=== PATIENT | male | born 1995 | race Caucasian/White ===

== ENCOUNTER 2016-08-08 11:02 | Emergency (ER) | payer OTHER ==
[2016-08-08] MEDS ORDERED: Orphenadrine Citrate IV* 30 MG/ML 2 ML VIAL IV ONE (11:20)
[2016-08-08] MEDS ORDERED: Ondansetron INJ* 2 MG/ML VIAL IV ONE (11:20)
[2016-08-08] MEDS ORDERED: Morphine INJ* 4 MG/ML 1 ML CARPUJECT IV ONE (11:20)
[2016-08-08] MEDS ORDERED: Ketorolac INJ* 30 MG/ML 1 ML VIAL IV PUSH ONE (11:20)
[2016-08-08] MEDS ORDERED: Dexamethasone IV* 4 MG/ML 1 ML (4 MG) IV SLOW PU ONE (11:20)
--- NOTE | 2016-08-08 12:32 | RAD ---
HISTORY: Back pain, history of L4-L5 discectomy COMPARISONS: MRI dated April 13, 2016 TECHNIQUE: Multiple contiguous axial CT scans were obtained of the lumbar spine without intravenous contrast, with coronal and sagittal multiplanar reformations. FINDINGS: SPINAL CANAL: Evaluation of the central canal is limited on CT technique; however, there is no obvious canalicular mass or epidural hemorrhage. ALIGNMENT: There is straightening of the lumbar lordosis VERTEBRAL BODIES: There is a laminectomy defect at L4-L5 JOINTS: No subluxation or dislocation MUSCULATURE: Unremarkable INTERVERTEBRAL DISCS: There is mild diffuse loss of intervertebral disc height throughout the spine. AXIAL IMAGES: T11-T12: There is no osseous neural foraminal area or central canal stenosis. T12-L1: There is no osseous neural foraminal narrowing or central canal stenosis. L1-L2: There is no osseous neural foraminal narrowing or central canal stenosis. L2-L3: There is no osseous neural foraminal narrowing or central canal stenosis. L3-L4: There is no osseous neural foraminal narrowing or central canal stenosis. L4-L5: There is a broad-based disc bulge. There is marginal osteophyte formation at the neural foramina bilaterally. There is moderate bilateral neural foraminal narrowing. A laminectomy defect is noted. L5-S1: There is mild disc bulge with marginal osteophyte formation at the neural foramina bilaterally. There is moderate bilateral neural foraminal narrowing. There is no osseous central canal stenosis. SOFT TISSUES: The visualized soft tissues of the abdomen are unremarkable. OTHER: None IMPRESSION: 1. POSTSURGICAL CHANGE. 2. DEGENERATIVE DISC DISEASE MOST PRONOUNCED AT L4-L5 AND L5-S1 WITH NEURAL FORAMINAL NARROWING DESCRIBED ABOVE.
--- NOTE | 2016-08-08 13:54 | ED ---
rojas Strong Timothy, scribed for Lev Layton MD on 08/08/16 at 1120 . Back Pain - HPI Summary HPI Summary: Jaquan Paris is a 20 yo male presenting to [facility] with 9/10 back pain since 1030 this am. He states he twisted his back to turn to sneeze at work and felt a sharp pain to his lower back. He states the pain is gradually spreading through his lower body and extremities.He immediately fell to the ground in pain , and was slowly able to work himself back up to a standing position. He states movement increases his pain to a 10/10. He denies any other Sx. His MHx includes spinal cord deformity, L4-L5 disectomy 04/2016, L4-L5 herniated disk, bursitis, and tobacco use. - History of Current Complaint Stated Complaint: BACK PAIN Time Seen by Provider: 08/08/16 11:14 Hx Obtained From: Patient Onset/Duration: Sudden Onset, Lasting Minutes, Still Present Onset/Duration: Started Minutes Ago, Still Present Timing: Constant Back Pain Location: Is Discrete @ - lower back, Radiates To - lower torso and lower extremeties Severity Initially: Moderate Severity Currently: Moderate Pain Intensity: 9 Pain Scale Used: 0-10 Numeric Character: Sharp Aggravating Symptom(s): Movement Alleviating Symptom(s): Rest Associated Signs And Symptoms: Positive: Negative - Allergies/Home Medications Allergies/Adverse Reactions: Allergies Allergy/AdvReac Type Severity Reaction Status Date / Time Bee Pollen Allergy Edema Verified 04/21/16 20:02 PMH/Surg Hx/FS Hx/Imm Hx Endocrine/Hematology History: Denies: Hx Anticoagulant Therapy, Hx Diabetes, Hx Thyroid Disease Cardiovascular History: Denies: Hx Hypertension, Hx Pacemaker/ICD, Other Cardiovascular Problems/ Disorders Respiratory History: Denies: Hx Asthma, Hx Chronic Obstructive Pulmonary Disease (COPD) GI History: Denies: Hx Ulcer, Other GI Disorders History: Denies: Hx Renal Disease Musculoskeletal History: Reports: Hx Bursitis Denies: Other Musculoskeletal History Sensory History: Denies: Hx Contacts or Glasses, Hx Hearing Aid Opthamlomology History: Denies: Hx Contacts or Glasses Neurological History: Denies: Hx Dementia, Hx Seizures Psychiatric History: Denies: Hx Panic Disorder, Hx Substance Abuse - Surgical History Surgery Procedure, Year, and Place: TONSILECTOMY & ADENOIDS REMOVED, MOLE REMOVED FROM BACK, DISCECTOMY (2016) Hx Anesthesia Reactions: No Infectious Disease History: No Infectious Disease History: Denies: Hx Hepatitis, Hx Human Immunodeficiency Virus (HIV), History Other Infectious Disease, Traveled Outside the [place] in Last 30 Days - Family History Known Family History: Positive: Cardiac Disease, Other - CA - mother, neuroblastoma, lung CA, colon CA - Social History Alcohol Use: Occasionally Alcohol Amount: 2-4 BEERS 1-2 TIMES PER WEEK Substance Use Type: Reports: None Smoking Status (MU): Current Some Day Smoker Have You Smoked in the Last Year: No Review of Systems Constitutional: Negative Eyes: Negative ENT: Negative Cardiovascular: Negative Respiratory: Negative Gastrointestinal: Negative Genitourinary: Negative Musculoskeletal: Other - lower back pain radiating through his lower extremities Skin: Negative Neurological: Negative Psychological: Normal All Other Systems Reviewed And Are Negative: Yes Physical Exam - Summary Physical Exam Summary: VITAL SIGNS: Reviewed. GENERAL: Patient is a well developed and nourished male who is lying comfortable in the stretcher. Patient is not in any acute respiratory distress. HEAD AND FACE: No signs of trauma. EYES: PERRLA, EOMI x 2. EARS: Hearing grossly intact. Ear canals and tympanic membranes are WNL MOUTH: Oropharynx within normal limits. NECK: Supple, trachea is midline, no adenopathy, no JVD. CHEST: Symmetric, no tenderness at palpation LUNGS: Clear to auscultation bilaterally. No wheezing or crackles. CVS: RRR, S1 and S2 present, no murmurs or gallops appreciated. ABDOMEN: Soft, NT. No signs of distention. Positive BS. No rebound no guarding, and no masses palpated. EXTREMITIES: FROM in all major joints, no edema, no cyanosis or clubbing. NEURO: Alert and oriented x 3. No acute neurological deficits. Speech is normal and follows commands. SKIN: Dry and warm Back: There is no ecchymosis, no deformity, positive paraspinal muscle tenderness in the lumbar spine. No vertebral tenderness. No saddle anesthesia. Refuses rectal exam. Straight test is negative. Triage Information Reviewed: Yes Vital Signs On Initial Exam: Initial Vitals Temp Pulse Resp BP Pulse Ox 98.4 F 64 18 149/86 98 08/08/16 11:07 08/08/16 11:07 08/08/16 11:07 08/08/16 11:07 08/08/16 11:07 Vital Signs Reviewed: Yes Diagnostics - Vital Signs Vital Signs Temp Pulse Resp BP Pulse Ox 08/08/16 11:07 98.4 F 64 18 149/86 98 - Laboratory Lab Statement: Any lab studies that have been ordered have been reviewed, and results considered in the medical decision making process. - CT L-Spine CT Interpretation: No Acute Changes - IMPRESSION: 1. POSTSURGICAL CHANGE. 2. DEGENERATIVE DISC DISEASE MOST PRONOUNCED AT L4-L5 AND L5-S1 WITH NEURAL FORAMINAL NARROWING DESCRIBED ABOVE., Positive (See Comments) - IMPRESSION: 1. POSTSURGICAL CHANGE. 2. DEGENERATIVE DISC DISEASE MOST PRONOUNCED AT L4-L5 AND L5-S1 WITH NEURAL FORAMINAL NARROWING DESCRIBED ABOVE. CT Interpretation Completed By: Radiologist Re-Evaluation - Re-Evaluation First Eval Re-Evaluation Time: 13:05 Change: Unchanged Comment: Pt was informed of imaging study results, and current course of Tx. Back Pain Course/Dx - Course Assessment/Plan: Jaquan Paris is a 20 yo male presenting to [facility] with 9/10 back pain since 1030 this am. He states he twisted his back to turn to sneeze at work and felt a sharp pain to his lower back. He states the pain is gradually spreading through his lower body and extremities.He immediately fell to the ground in pain, and was slowly able to work himself back up to a standing position. He states movement increases his pain to a 10/10. He denies any other Sx. His MHx includes spinal cord deformity, L4-L5 discectomy 04/2016, L4-L5 herniated disk, bursitis, and tobacco use. P/E: reveal paraspinal muscle tenderness, no vertebral tenderness. He declined rectal exam. He reports no urinary or bowel dysfunction. He denies any saddle anesthesia. Initially he was given Toradol, Morphine, Zofran, Decadron and Norflex for the pain. Lumbar CT impression: 1. POSTSURGICAL CHANGE. 2. DEGENERATIVE DISC DISEASE MOST PRONOUNCED AT L4-L5 AND L5-S1 WITH NEURAL FORAMINAL NARROWING DESCRIBED ABOVE. After initial medications his symptoms have significantly improved. He is able to ambulate and pain in minimal. I discussed the case with Dr. Díaz and he agrees to discharge patient and will f/u with him. I discussed all the findings and test results with the patient. Patient was instructed to return to the emergency room immediately if any of the symptoms return or worsens. Plan of care was discussed with the patient and understands and agrees. All questions were answered at patient satisfaction. There were no further complaints or concerns. Lung exam before discharge: CTA B/L. Good air exchange. No wheezing or crackles heard. CVS: S1 and S2 present. No murmurs appreciated. Patient is alert and oriented x 3. Patient is hemodynamically stable. Patient will be discharged home with follow up family centered specialist in the next 2-3 days - Diagnoses Differential Diagnosis/HQI/PQRI: Positive: Herniated Disc, Strain, Sprain Provider Diagnoses: Back pain, Lumbar sprain - Provider Notifications Discussed Care of Patient With: 1315 - Dr. Díaz (neurosurgery) - discussed Pt condition, agrees with current course of Tx, Pt will be discharged. Discharge - Discharge Plan Condition: Stable Disposition: HOME Prescriptions: Cyclobenzaprine TAB* [Flexeril TAB*] 10 mg PO TID PRN #12 tab PRN Reason: Pain HYDROcodone/ACETAMIN 5-325 MG* [Statham 5-325 TAB*] 1 tab PO Q8H PRN #10 tab MDD max 3 tabs /day PRN Reason: Pain Ibuprofen TAB* [Motrin TAB* 600 MG] 600 mg PO Q8H PRN #20 tab PRN Reason: Pain Patient Education Materials: Back Pain (ED), Lower Back Exercises (ED) Referrals: No Primary Care Phys,NOPCP [Primary Care Provider] - [facility] [place] [facility]IAN REFERRAL [Outside] - 2 Days Additional Instructions: Please follow up with the primary care physician provided regarding your visit to the emergency department today. Return to the emergency department with any new or recurring symptoms. The documentation as recorded by the rojas lora Timothy accurately reflects the service I personally performed and the decisions made by me, Lev Layton MD.
[2016-08-08 14:08] VITALS: BP 127/66
== END 2016-08-08 14:08 | disposition home or self-care (01) ==
LOC: ED 11:02
DX: S33.5XXA Sprain of ligaments of lumbar spine, initial encounter (principal); M54.5 Low back pain; W19.XXXA Unspecified fall, initial encounter; Y93.9 Activity, unspecified; Y92.9 Unspecified place or not applicable
CPT/HCPCS: 72131; 96374; 96375; 99283; J1100; J1885; J2270; J2360; J2405

== ENCOUNTER → 2017-01-15 10:52 | Emergency (ER) | payer OTHER ==
[~2017-01-15 10:52] MED LIST: Ketorolac INJ* 60 MG/2 ML VIAL IM ONE
[2017-01-15 10:57] VITALS: BP 138/93
--- NOTE | 2017-01-15 11:58 | ED ---
Holly Strong Edward, scribed for Stephen Delgado MD on 01/15/17 at 1105 . Back Pain - HPI Summary HPI Summary: 21 y/o male presents to ED c/o gradual onset back soreness starting 2 weeks ago. The pain has been getting progressively worse since it started, rated at 10 /10 at triage. It is spasmodic with movement. The pain is the in lower back and radiates to bilateral legs down to the upper thigh. The pain is aggravated with walking, sitting and standing. Denies urinary symptoms. PMHx back spasms. SHx - History of Current Complaint Chief Complaint: EDBackInjuryPain Stated Complaint: LOWER BACK AND LEG PAIN Time Seen by Provider: 01/15/17 10:59 Hx Obtained From: Patient Onset/Duration: Gradual Onset, Lasting Weeks - 2, Still Present Severity Currently: Severe Pain Intensity: 10 Pain Scale Used: 0-10 Numeric Character: Spasmodic Associated Signs And Symptoms: Positive: Pain with Weight Bearing. Negative: Bladder Incontinence - Allergies/Home Medications Allergies/Adverse Reactions: Allergies Allergy/AdvReac Type Severity Reaction Status Date / Time Bee Pollen Allergy Edema Verified 01/15/17 10:56 PMH/Surg Hx/FS Hx/Imm Hx Previously Healthy: No Endocrine/Hematology History: Denies: Hx Anticoagulant Therapy, Hx Diabetes, Hx Thyroid Disease Cardiovascular History: Denies: Hx Hypertension, Hx Pacemaker/ICD, Other Cardiovascular Problems/ Disorders Respiratory History: Denies: Hx Asthma, Hx Chronic Obstructive Pulmonary Disease (COPD) GI History: Denies: Hx Ulcer, Other GI Disorders History: Denies: Hx Renal Disease Musculoskeletal History: Reports: Hx Bursitis Denies: Other Musculoskeletal History Sensory History: Denies: Hx Contacts or Glasses, Hx Hearing Aid Opthamlomology History: Denies: Hx Contacts or Glasses Neurological History: Denies: Hx Dementia, Hx Seizures Psychiatric History: Denies: Hx Panic Disorder, Hx Substance Abuse - Surgical History Surgery Procedure, Year, and Place: TONSILECTOMY & ADENOIDS REMOVED, MOLE REMOVED FROM BACK, DISCECTOMY (2016) Hx Anesthesia Reactions: No Infectious Disease History: Denies: Hx Hepatitis, Hx Human Immunodeficiency Virus (HIV), History Other Infectious Disease, Traveled Outside the [place] in Last 30 Days - Family History Known Family History: Positive: Cardiac Disease, Other - CA - mother, neuroblastoma, lung CA, colon CA - Social History Occupation: Employed Full-time Lives: With Family Alcohol Use: Occasionally Alcohol Amount: 2-4 BEERS 1-2 TIMES PER WEEK Hx Substance Use: No Substance Use Type: Reports: None Hx Tobacco Use: Yes Smoking Status (MU): Current Some Day Smoker Have You Smoked in the Last Year: No Review of Systems Constitutional: Negative Eyes: Negative ENT: Negative Cardiovascular: Negative Respiratory: Negative Gastrointestinal: Negative Genitourinary: Negative - Denies urinary symptoms Positive: Myalgia - Lower back pain Skin: Negative Neurological: Negative Psychological: Normal All Other Systems Reviewed And Are Negative: Yes Physical Exam Triage Information Reviewed: Yes Vital Signs On Initial Exam: Initial Vitals Temp Pulse Resp BP Pulse Ox 97.4 F 68 16 138/93 99 01/15/17 10:56 01/15/17 10:56 01/15/17 10:56 01/15/17 10:56 01/15/17 10:56 Vital Signs Reviewed: Yes Appearance: Positive: Well-Appearing, No Pain Distress Skin: Positive: Warm, Skin Color Reflects Adequate Perfusion, Dry Head/Face: Positive: Normal Head/Face Inspection Eyes: Positive: Normal ENT: Positive: Normal ENT inspection Neck: Positive: Supple, Nontender Respiratory/Lung Sounds: Positive: Clear to Auscultation, Breath Sounds Present Cardiovascular: Positive: RRR Abdomen Description: Positive: Nontender, Soft Bowel Sounds: Positive: Present Musculoskeletal: Positive: Other - STRAIGHT R LEG RAISE @ 30 DEGREES Neurological: Positive: Normal Psychiatric: Positive: Normal, Affect/Mood Appropriate Diagnostics - Vital Signs Vital Signs Temp Pulse Resp BP Pulse Ox 01/15/17 10:56 97.4 F 68 16 138/93 99 - Laboratory Lab Statement: Any lab studies that have been ordered have been reviewed, and results considered in the medical decision making process. Back Pain Course/Dx - Course Course Of Treatment: Mr. Paris started with low back pain about a week ago which has steadily gotten worse. Now it hurts to move at all and he has spasms. He has previously had surgery and has only had a problem one other time since the surgery. N/V/M are completely intact. I will treat him conservatively at this time with a medrol dose pack which he states worked well for him last time. - Diagnoses Provider Diagnoses: Low back strain Discharge - Discharge Plan Condition: Stable Disposition: HOME Prescriptions: Methylprednisolone [Medrol Dosepak 4 MG*] 4 mg PO .SEE ERIKA INSTRUCTION #1 tab Patient Education Materials: Low Back Strain (ED) Referrals: [facility] [place] - 3 Days (Please f/u in 2-3 days) The documentation as recorded by the Holly lora Edward accurately reflects the service I personally performed and the decisions made by me, Stephen Delgado MD.
== END | disposition home or self-care (01) ==
LOC: ED 10:52
DX: S39.012A Strain of muscle, fascia and tendon of lower back, initial encounter (principal); M62.830 Muscle spasm of back; X58.XXXA Exposure to other specified factors, initial encounter; Y93.9 Activity, unspecified; Y92.9 Unspecified place or not applicable; Z72.0 Tobacco use
CPT/HCPCS: 96372; 99282; J1885

== ENCOUNTER 2017-08-30 10:47 | Emergency (ER) | payer OTHER ==
[2017-08-30 12:20] VITALS: BP 137/85
--- NOTE | 2017-08-30 15:47 | ED ---
Back Pain - HPI Summary HPI Summary: Patient is an otherwise healthy 21-year-old male presenting to the ED with a chief complaint of low back pain, stiffness and back spasms. He sustained an injury 3 years ago and states he has crushed 3 of his discs. Surgery through Dr. Díaz in neurosurgery 2 years ago with 2 discectomies. He states he will have flareups approximately every 6 months where he endorses pain to the lower back with radiating pain to the bilateral posterior extremities. N eyes any bladder or bowel dysfunction. Endorses numbness and tingling to the bilateral posterior legs, with intermittent numbness and tingling into the right dorsal side of the foot. Pain is currently rated a 7 out of 10, worse with lying flat , better with sitting. He has tried ibuprofen 600mg at home without relief. He has tried moist heat without relief. He states his steroid, Medrol Dosepak and Flexeril helps in the past. He does not appear to be opioid seeking. He does not currently have a follow-up with Dr. Díaz and does not currently have a PCP. - History of Current Complaint Chief Complaint: EDBackInjuryPain Stated Complaint: LOWER BACK PAIN/NUMBNESS Time Seen by Provider: 08/30/17 10:53 Hx Obtained From: Patient Onset/Duration: Sudden Onset Onset/Duration: Started Hours Ago Timing: Constant Back Pain Location: Is Discrete @ - low back Severity Initially: Mild Severity Currently: Mild Pain Intensity: 6 Pain Scale Used: 0-10 Numeric Character: Aching Aggravating Symptom(s): Movement, Walking Alleviating Symptom(s): Rest Associated Signs And Symptoms: Positive: Numbness. Negative: Bruising, Weakness , Tingling, Abdominal Pain, Bladder Incontinence, Bowel Incontinence, Weight Loss, Pain with Weight Bearing - Risk Factors AAA Risk Factors: Negative TAD Risk Factors: Negative Cauda Equina Risk Factors: Negative Epidural Abscess Risk Factors: Negative - Allergies/Home Medications Allergies/Adverse Reactions: Allergies Allergy/AdvReac Type Severity Reaction Status Date / Time MS Bee Pollen [Bee Pollen] Allergy Edema Verified 01/15/17 10:56 PMH/Surg Hx/FS Hx/Imm Hx Previously Healthy: Yes Endocrine/Hematology History: Denies: Hx Anticoagulant Therapy, Hx Diabetes, Hx Thyroid Disease Cardiovascular History: Denies: Hx Hypertension, Hx Pacemaker/ICD, Other Cardiovascular Problems/ Disorders Respiratory History: Denies: Hx Asthma, Hx Chronic Obstructive Pulmonary Disease (COPD) GI History: Denies: Hx Ulcer, Other GI Disorders History: Denies: Hx Renal Disease Musculoskeletal History: Reports: Hx Bursitis Denies: Other Musculoskeletal History Sensory History: Denies: Hx Contacts or Glasses, Hx Hearing Aid Opthamlomology History: Denies: Hx Contacts or Glasses Neurological History: Denies: Hx Dementia, Hx Seizures Psychiatric History: Denies: Hx Panic Disorder, Hx Substance Abuse - Surgical History Surgery Procedure, Year, and Place: TONSILECTOMY & ADENOIDS REMOVED, MOLE REMOVED FROM BACK, DISCECTOMY (2016) Hx Anesthesia Reactions: No - Immunization History Hx Pertussis Vaccination: No Immunizations Up to Date: Unable to Obtain/Confirm Infectious Disease History: No Infectious Disease History: Denies: Hx Hepatitis, Hx Human Immunodeficiency Virus (HIV), History Other Infectious Disease, Traveled Outside the [place] in Last 30 Days - Family History Known Family History: Positive: None, Cardiac Disease, Other - CA - mother, neuroblastoma, lung CA, colon CA - Social History Occupation: Employed Full-time Lives: With Family Alcohol Use: Occasionally Alcohol Amount: 2-4 BEERS 1-2 TIMES PER WEEK Hx Substance Use: No Substance Use Type: Reports: None Hx Tobacco Use: Yes Smoking Status (MU): Current Some Day Smoker Have You Smoked in the Last Year: No Review of Systems Constitutional: Negative Negative: Fever, Chills, Fatigue, Skin Diaphoresis Eyes: Negative Cardiovascular: Negative Respiratory: Negative Genitourinary: Negative Positive: no symptoms reported, see HPI Positive: Arthralgia, Myalgia Skin: Negative Positive: Paresthesia, Numbness Psychological: Normal All Other Systems Reviewed And Are Negative: Yes Physical Exam - Summary Physical Exam Summary: Thorough physical exam was performed, focusing on thoracic and lumbar special tests and ROM. Due to patient pain around injury, physical exam was limited. Limited ROM. Flip Test negative. Straight leg raise positive. Kernig test positive. Negative Babinksi. Hip flexion and extension, knee extension, dorsiflexion, great toe extension and plantar flexion intact. Rotating at hips limited d/t pain. Nerve roots L4-S2 reflexes intact. L1-S2 nerve root sensory intact. No saddle anesthesia. Gait normal. Triage Information Reviewed: Yes Vital Signs On Initial Exam: Initial Vitals Temp Pulse Resp BP Pulse Ox 98.2 F 62 18 143/74 100 08/30/17 10:49 08/30/17 10:49 08/30/17 10:49 08/30/17 10:49 08/30/17 10:49 Vital Signs Reviewed: Yes Appearance: Positive: Well-Appearing, Well-Nourished Skin: Positive: Warm, Skin Color Reflects Adequate Perfusion Head/Face: Positive: Normal Head/Face Inspection Eyes: Positive: EOMI, JAVIER Neck: Positive: Supple, No Lymphadenopathy Respiratory/Lung Sounds: Positive: Clear to Auscultation, Breath Sounds Present Cardiovascular: Positive: RRR, Pulses are Symmetrical in both Upper and Lower Extremities Musculoskeletal: Positive: Pain @ - low back on palpation and with rotation of the hips bilaterally - pain referred to the bilateral lower extremities Neurological: Positive: Sensory/Motor Intact, Alert, Oriented to Person Place, Time, Speech Normal Psychiatric: Positive: Affect/Mood Appropriate Diagnostics - Vital Signs Vital Signs Temp Pulse Resp BP Pulse Ox 08/30/17 12:19 98 F 89 16 137/85 100 08/30/17 10:49 98.2 F 62 18 143/74 100 - Laboratory Lab Statement: Any lab studies that have been ordered have been reviewed, and results considered in the medical decision making process. Back Pain Course/Dx - Course Course Of Treatment: During the course of treatment, I have advised the patient this is likely a strain due to chronic low back pain. Acute on chronic pain is normal for him. I discussed giving him a Medrol Dosepak as well as Flexeril. I have given him low back exercises and he will use moist heat for relief. He is okay with this plan and discharge and will follow-up with Dr. Díaz soon. I have also given him a referral to [place] [facility] [place] to reach out to obtain a PCP as soon as possible. Denies any bladder or bowel dysfunction. Vital signs are stable. - Diagnoses Provider Diagnoses: Acute exacerbation of chronic low back pain Discharge - Sign-Out/Discharge Documenting (check all that apply): Discharge - Discharge Plan Condition: Stable Disposition: HOME Prescriptions: Cyclobenzaprine TAB* [Flexeril TAB*] 10 mg PO BID PRN #15 tab MDD 3 PRN Reason: Spasms Ibuprofen 600 mg PO TID PRN #30 tablet MDD 3 PRN Reason: Pain methylPREDNISolone [Medrol Dosepak 4 MG*] 4 mg PO .SEE ERIKA INSTRUCTION #1 packet Patient Education Materials: Lower Back Exercises (ED) Referrals: No Primary Care Phys,NOPCP [Primary Care Provider] - Additional Instructions: Please follow up with Dr. Díaz Call Brynn Byrd to obtain a PCP moist heat to the area several times per day low back exercises ( i have given you information) - Billing Disposition and Condition Condition: STABLE Disposition: HOME
== END 2017-08-30 12:20 | disposition home or self-care (01) ==
LOC: ED 10:47
DX: M54.5 Low back pain (principal); G89.29 Other chronic pain; Z72.0 Tobacco use
CPT/HCPCS: 99282

== ENCOUNTER 2017-11-26 09:49 | Emergency (ER) | payer OTHER ==
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
--- NOTE | 2017-11-26 10:59 | RAD ---
Indication: Chronic back pain, right sciatica pain. CT of the lumbar spine was obtained in the axial plane. Sagittal and coronal reconstructed images were obtained. The vertebral bodies appear normal in height and alignment. Normal bone marrow signal is noted. At L5-S1 broad-based protrusion flattens the thecal sac. There is suggestion of a large right paracentral disc protrusion which indents the thecal sac and likely impinges upon the right descending nerve root. At L4-L5 broad-based protrusion flattens the thecal sac. Post laminectomy at this level. No foraminal stenosis is noted. At L3-L4, L2-L3 and L1-L2 the disc space appears normal. IMPRESSION: At L5-S1 there appears to be large central to right paracentral disc protrusion indenting the thecal sac and may impinge upon the right descending nerve root. Postoperative changes at L4-L5 is noted.
[2017-11-26 11:15] VITALS: BP 149/90
== END 2017-11-26 11:14 | disposition home or self-care (01) ==
LOC: ED 09:49
DX: M51.26 Other intervertebral disc displacement, lumbar region (principal); Z91.030 Bee allergy status; Z82.49 Family history of ischemic heart disease and other diseases of the circulatory system; Z80.0 Family history of malignant neoplasm of digestive organs; Z80.1 Family history of malignant neoplasm of trachea, bronchus and lung; Z72.0 Tobacco use
CPT/HCPCS: 72131; 99282

== ENCOUNTER 2018-02-05 07:43 | Observation (INO) | payer OTHER ==
[~2018-02-05 07:43] MED LIST changes: +Buffered Lidocaine 0.9% SYRIN* 5 ML/SYR SYRINGE INTRADERM ONE; +Famotidine IV* 10 MG/ML 2 ML (20 mg) IV ONE; -Ketorolac INJ* 60 MG/2 ML VIAL IM ONE
[2018-02-05] MEDS ORDERED: Famotidine IV* 10 MG/ML 2 ML (20 mg) ONE (07:47)
[2018-02-05] MEDS ORDERED: ceFAZolin 2 GM PREMIX in ORs 2 GM/50 ML BAG IVPB ONE (07:47)
[2018-02-05] MEDS ORDERED: KETAMINE HCL* 50 MG/ML 10 ML VIAL ONE (08:28)
[2018-02-05] MEDS ORDERED: Lidocaine 2% PF * 5 ML VIAL ONE (08:28)
[2018-02-05] MEDS ORDERED: fentaNYL* 50 MCG/ML 2 ML VIAL (100 MCG VIAL) ONE ×2 (08:28→11:10)
[2018-02-05] MEDS ORDERED: Ondansetron INJ* 2 MG/ML VIAL ONE (08:28)
[2018-02-05] MEDS ORDERED: Propofol* 10 MG/ML 20 ML BTL IV PUSH ONE (08:28)
[2018-02-05] MEDS ORDERED: Dexamethasone IV* 4 MG/ML 1 ML (4 MG) ONE (08:28)
[2018-02-05] MEDS ORDERED: Cisatracurium* 2 MG/ML MDV 5 ML ONE (08:28)
[2018-02-05] MEDS ORDERED: Midazolam* 1 MG/ML 5 ML VIAL (5 MG) ONE (08:29)
[2018-02-05] MEDS ORDERED: Thrombin 5,000 UNITS* 1 APPLIC KIT - topical use - TOPICAL ONE (09:20)
[2018-02-05] MEDS ORDERED: Lidocain 1% EPI 1:100,000 * 30 ML MDV ONE (09:20)
[2018-02-05] MEDS ORDERED: Bacitracin IV* 50,000 UNITS INJ ONE (09:20)
[2018-02-05] MEDS ORDERED: Naloxone* 0.4 MG/ML 1 ML VIAL IV PRN (10:28)
[2018-02-05] MEDS ORDERED: HYDROmorphone INJ* 1 MG/ML CARPUJECT SYRINGE IV PRN (10:28)
[2018-02-05] MEDS ORDERED: oxyCODONE/Acetamin 5/325 MG* TAB PO PRN (10:28)
[2018-02-05] MEDS ORDERED: Ondansetron INJ* 2 MG/ML VIAL IV PRN ×2 (10:28→10:37)
[2018-02-05] MEDS ORDERED: Magnesium Hydroxide LIQ* 30 ML UDC PO PRN (10:37)
[2018-02-05] MEDS ORDERED: Acetaminophen TAB* 325 MG PO PRN (10:37)
[2018-02-05] MEDS: fentaNYL* 50 MCG/ML 2 ML VIAL (100 MCG VIAL) IV PRN ×2 (11:13→11:47)
[2018-02-05] MEDS ORDERED: HYDROmorphone INJ1* 1 MG/ML SYRINGE ONE (11:29)
[2018-02-05] MEDS ORDERED: oxyCODONE/Acetamin 5/325 MG* TAB ONE (11:55)
[2018-02-05] MEDS: HYDROcodone/ACETAMIN 5-325 MG* 1 TAB PO PRN ×2 (15:07→21:29)
--- NOTE | 2018-02-06 07:54 | PN ---
Progress Note - Progress Note Date of Service: 02/06/18 SOAP: Subjective: [S/p lumbar discectomy L5-S1, POD #1. Feeling well this morning. Ambulating independently. Pre-op symptoms improved. Denies headache, nausea. ] Objective: [ Vital Signs: Temp Pulse Resp BP Pulse Ox 98.2 F 45 16 148/68 99 02/06/18 03:21 02/06/18 03:21 02/06/18 03:21 02/06/18 03:21 02/06/18 03:21 General: Alert and NAD. Neuro: Motor and sensory intact. ] Assessment: [Satisfactory post-op course.] Plan: [1. Discharge home today. 2. Discharge instructions discussed with the patient. ]
[2018-02-06 08:05] VITALS: BP 143/81
[2018-02-06] MEDS: HYDROcodone/ACETAMIN 5-325 MG* 1 TAB PO PRN (09:37)
--- NOTE | 2018-02-11 08:56 | OP ---
DATE OF OPERATION: 02/05/18 - ROOM #335 DATE OF : 89 SURGEON: Rajinder Díaz MD TOUCH UP CARVER: CHIQUITA Lopez ANESTHESIA: General. PRE-OP DIAGNOSIS: Herniated nucleus pulposus L5-S1 on the right. POST-OP DIAGNOSIS: Herniated nucleus pulposus L5-S1 on the right. OPERATIVE PROCEDURE: Lumbar diskectomy L5-S1 on the right with microdissection. DESCRIPTION OF PROCEDURE: After satisfactory general anesthesia was obtained, the patient was placed on operating table in the prone position with the chest supported on the Sathish frame and the back slightly flexed. The lumbar region was then clipped, prepped and draped in a sterile manner for a lumbar laminectomy and a skin incision outlined just below his previous L4-5 incision over the L5-S1 interspace. This incision was infiltrated with 1% Xylocaine with epinephrine after which it was turned down sharply to the level of the lumbar fascia. The fascia was divided along the spinous processes of L5 and S1 and the paraspinal musculature stripped away from these posterior elements on the right side using the periosteal elevator and monopolar cautery. An intraoperative x-ray was obtained verifying proper interspace localization after which a partial hemilaminectomy was carried out by removing the inferior aspect of the L5 lamina and medial aspect of the facet complex with a combination of the Midas Arcadio drill and Kerrison rongeurs. This was carried superiorly into the attachment of ligamentum flavum was taken down. At this point of the procedure, the operating microscope was brought into the field and the remainder of the procedure was done under microscopic visualization. Projecting beneath the S1 nerve root was noted to be a subcapsular disk herniation. An opening was made in the posterior longitudinal ligament and multiple fragments and disk material were removed from beneath the S1 nerve root. This was done utilizing up and downbiting curettes as well as pituitary rongeurs. At the conclusion of the decompression, the nerve root was noted to be free in its course. After assuring adequate hemostasis, a piece of Gelfoam was placed over the laminectomy defect. The fascia was then reapproximated with 0 Vicryl suture. The subcutaneous tissue was closed with 3-0 Vicryl suture and the skin closed with skin clips. The estimated blood loss was less then 50 cc and final sponge, padding, and needle counts were correct. The patient was taken to the recovery room, extubated and in stable condition. [id number]/[facility] #: [id number] MTDTommy
--- NOTE | 2018-02-12 22:26 | DS ---
DISCHARGE SUMMARY: DATE OF ADMISSION: 02/05/18. DATE OF DISCHARGE: 02/06/18. ATTENDING PHYSICIAN: Dr. Díaz.* (DICTATED BY CHIQUITA ROGERS) DISCHARGE DIAGNOSES: 1. Herniated nucleus pulposus L5-S1 on the right. 2. History of herniated nucleus pulposus L4-5 with previous surgery. SPECIAL PROCEDURES: Lumbar diskectomy L5-S1 on the right. HOSPITAL COURSE: This 22-year-old male was seen in the office with right-sided lumbar radiculopathy. MRI was obtained and showed herniated disk at L5-S1 on the right consistent with the patient's symptoms and physical exam findings. He is unable to manage the pain with conservative treatments and therefore elected for surgical intervention. On the day of admission, he was taken to surgery, where under general anesthesia a lumbar diskectomy at L5-S1 operation was carried out. Postoperatively, he was feeling well and the preoperative right lower extremity symptoms have resolved. He is ambulating in the nursing unit without difficulty and he is eating and drinking and voiding without difficulty. On the first postoperative day, he was discharged home to the care of his family. He will be seen in the office in approximately 7 to 10 days for followup. DISCHARGE INSTRUCTIONS: Wound care and activity level were discussed with the patient and information on this was provided. DISCHARGE MEDICATIONS: Percocet 5/325 mg 1 to 2 tablets by mouth every 4 hours as needed for pain. CHIQUITA ROGERS [id number]/[facility] #: [id number] [facility] HOSPITALTommy
== END 2018-02-06 10:15 | disposition home or self-care (01) ==
LOC: OR 07:43 → SSU 10:37
PROVIDERS: ADMIT Neurological Surgery; ATTEND Neurological Surgery
PROC: 01NB0ZZ Release Lumbar Nerve, Open Approach (ICD-10-PCS; 2018-02-05)
PROC: 0SB20ZZ Excision of Lumbar Vertebral Disc, Open Approach (ICD-10-PCS; principal; 2018-02-05 09:00)
DX: M51.17 Intervertebral disc disorders with radiculopathy, lumbosacral region (principal); M51.27 Other intervertebral disc displacement, lumbosacral region
CPT/HCPCS: A9270-GY; G0378; J0690; J1100; J1170; J2250; J2405; J2704; J3010

== ENCOUNTER 2018-10-09 08:59 | Emergency (ER) | payer OTHER ==
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
[2018-10-09] MEDS ORDERED: Cyclobenzaprine TAB* 10 MG PO ONE (09:23)
[2018-10-09] MEDS ORDERED: predniSONE TAB* 20 MG PO ONE (09:23)
[2018-10-09 09:49] VITALS: BP 138/92
== END 2018-10-09 09:47 | disposition home or self-care (01) ==
LOC: ED 08:59
DX: S39.012A Strain of muscle, fascia and tendon of lower back, initial encounter (principal); V49.9XXA Car occupant (driver) (passenger) injured in unspecified traffic accident, initial encounter; Y92.410 Unspecified street and highway as the place of occurrence of the external cause; F17.210 Nicotine dependence, cigarettes, uncomplicated; M54.42 Lumbago with sciatica, left side
CPT/HCPCS: 99282; A9270-GY; J7512